=== PATIENT | female | born 1970 | race Caucasian/White ===

== ENCOUNTER → 2016-12-09 | Outpatient (CLI) | payer MEDICAID ==
--- NOTE | 2016-12-10 11:49 | MM ---
Reason for exam: screening (asymptomatic). Last mammogram was performed 10 months ago. History: Benign US biopsy breast VAD RT of the right breast, August 14, 2015. Physical Findings: A clinical breast exam by your physician is recommended on an annual basis and results should be correlated with mammographic findings. MG 3D Screening Mammo W/Cad Bilateral CC and MLO view(s) were taken. Prior study comparison: February 15, 2016, right breast MG diagnostic mammo RT w CAD. August 14, 2015, right breast MG diagnostic mammo RT wo CAD. There are scattered fibroglandular densities. Previous mammotome biopsy in the right breast. No significant changes when compared with prior studies. ASSESSMENT: Benign, BI-RAD 2 RECOMMENDATION: Routine screening mammogram of both breasts in 1 year.
== END | disposition home or self-care (01) ==
LOC: RADMAMWWP 16:24
PROVIDERS: ATTEND Family Medicine
DX: Z12.31 Encounter for screening mammogram for malignant neoplasm of breast (principal)
CPT/HCPCS: 77063; G0202

== ENCOUNTER → 2018-04-20 | Outpatient (CLI) | payer MEDICAID ==
--- NOTE | 2018-04-21 14:02 | MM ---
Reason for exam: screening (asymptomatic). Last mammogram was performed 1 year and 4 months ago. History: Benign US biopsy breast VAD RT of the right breast, August 14, 2015. Physical Findings: A clinical breast exam by your physician is recommended on an annual basis and results should be correlated with mammographic findings. MG Screening Mammo w CAD Bilateral CC and MLO view(s) were taken. Prior study comparison: December 09, 2016, bilateral MG 3d screening mammo w/cad. February 15, 2016, right breast MG diagnostic mammo RT w CAD. There are scattered fibroglandular densities. Previous mammotome biopsy in the right breast. Developing asymmetry middle depth upper aspect. ASSESSMENT: Incomplete: need additional imaging evaluation, BI-RAD 0 RECOMMENDATION: Special view mammogram of the right breast. If lesion persists on supplemental views, image directed ultrasound is recommended. [facility] will attempt to contact patient to return for supplemental views and ultrasound if indicated.
== END | disposition home or self-care (01) ==
LOC: RADMAMWWP 13:44
PROVIDERS: ATTEND Family Medicine
DX: Z12.31 Encounter for screening mammogram for malignant neoplasm of breast (principal)
CPT/HCPCS: 77067

== ENCOUNTER → 2018-04-29 | Outpatient (CLI) | payer MEDICAID ==
--- NOTE | 2018-05-03 07:56 | MM ---
Reason for exam: additional evaluation requested from abnormal screening. Last mammogram was performed less than 1 month ago. History: Benign US biopsy breast VAD RT of the right breast, August 14, 2015. Physical Findings: Nurse did not find any significant physical abnormalities on exam. MG 3D Work Up W/Cad LT CC and MLO view(s) were taken of the left breast. Technologist: Angeline Greene, RT (R)(M) Prior study comparison: April 20, 2018, bilateral MG screening mammo w CAD. December 09, 2016, bilateral MG 3d screening mammo w/cad. There are scattered fibroglandular densities. The questioned upper outer quadrant focal asymmetry appear to disperse. Precautionary 6 month follow up recommended. These results were verbally communicated with the patient and result sheet given to the patient on 04/29/18. ASSESSMENT: Probably benign, BI-RAD 3 RECOMMENDATION: Follow-up diagnostic mammogram of the left breast in 6 months.
== END | disposition home or self-care (01) ==
LOC: RADMAMWWP 14:11
PROVIDERS: ATTEND Family Medicine
DX: R92.8 Other abnormal and inconclusive findings on diagnostic imaging of breast (principal)
CPT/HCPCS: 77061; 77065

== ENCOUNTER → 2018-12-17 | Outpatient (CLI) | payer MEDICAID ==
--- NOTE | 2018-12-17 11:29 | MM ---
Reason for exam: follow-up at short interval from prior study. Last mammogram was performed 8 months ago. History: Patient is postmenopausal and had first child at age 29. Benign US biopsy breast VAD RT of the right breast, August 14, 2015. Physical Findings: Nurse did not find any significant physical abnormalities on exam. MG Diagnostic Mammo LT w CAD CC and MLO view(s) were taken of the left breast. Prior study comparison: April 29, 2018, left breast MG 3d work up w/cad LT. April 20, 2018, bilateral MG screening mammo w CAD. There are scattered fibroglandular densities. There is no discrete abnormality. No significant new findings when compared with previous films. These results were verbally communicated with the patient and result sheet given to the patient on 12/17/18. ASSESSMENT: Benign, BI-RAD 2 RECOMMENDATION: Return to routine screening mammogram schedule for both breasts. Back on schedule.
== END | disposition home or self-care (01) ==
LOC: RADMAMWWP 08:57
PROVIDERS: ATTEND Family Medicine
DX: N63.20 Unspecified lump in the left breast, unspecified quadrant (principal)
CPT/HCPCS: 77065

== ENCOUNTER → 2019-08-17 | Outpatient (CLI) | payer MEDICAID ==
--- NOTE | 2019-08-18 12:08 | MM ---
Reason for exam: screening (asymptomatic). Last mammogram was performed 8 months ago. History: Patient is postmenopausal and had first child at age 29. Benign US biopsy breast VAD RT of the right breast, August 14, 2015. Physical Findings: A clinical breast exam by your physician is recommended on an annual basis and results should be correlated with mammographic findings. MG Screening Mammo w CAD Bilateral CC and MLO view(s) were taken. Prior study comparison: December 17, 2018, left breast MG diagnostic mammo LT w CAD. April 20, 2018, bilateral MG screening mammo w CAD. December 09, 2016, bilateral MG 3d screening mammo w/cad. There are scattered fibroglandular densities. No significant changes when compared with prior studies. ASSESSMENT: Benign, BI-RAD 2 RECOMMENDATION: Routine screening mammogram of both breasts in 1 year.
== END | disposition home or self-care (01) ==
LOC: RADMAMWWP 15:16
PROVIDERS: ATTEND Family Medicine
DX: Z12.31 Encounter for screening mammogram for malignant neoplasm of breast (principal)
CPT/HCPCS: 77067

== ENCOUNTER → 2020-11-20 | Outpatient (CLI) | payer MEDICAID ==
--- NOTE | 2020-11-21 09:47 | MM ---
Reason for exam: screening (asymptomatic). Last mammogram was performed 1 year and 3 months ago. History: Patient is postmenopausal and had first child at age 29. Benign US biopsy breast VAD RT of the right breast, August 14, 2015. Physical Findings: A clinical breast exam by your physician is recommended on an annual basis and results should be correlated with mammographic findings. MG Screening Mammo w CAD Bilateral CC and MLO view(s) were taken. Prior study comparison: August 17, 2019, bilateral MG screening mammo w CAD. December 17, 2018, left breast MG diagnostic mammo LT w CAD. There are scattered fibroglandular densities. Previous mammotome biopsy in the right breast. There is chronic nodularity in the right breast. There is no discrete abnormality. ASSESSMENT: Benign, BI-RAD 2 RECOMMENDATION: Routine screening mammogram of both breasts in 1 year.
== END | disposition home or self-care (01) ==
LOC: RADMAMWWP 08:06
PROVIDERS: ATTEND Family Medicine
DX: Z12.31 Encounter for screening mammogram for malignant neoplasm of breast (principal)
CPT/HCPCS: 77067

== ENCOUNTER 2020-12-06 07:11 | Day surgery (SDC) | payer MEDICAID ==
[2020-12-05 10:13] VITALS: BMI 37.0
[~2020-12-06 07:11] MED LIST: LACTATED RINGERS 1,000 ML IV SCH
[2020-12-06 07:34] VITALS: TEMP 97.8
[2020-12-06] MEDS ORDERED: LIDOCAINE 1% (10MG/ML) FOR IV START INTRADERMA ONE (07:38)
[2020-12-06] MEDS ORDERED: PROPOFOL 10 MG/ML 20 ML VIAL IV ONE (08:04)
--- NOTE | 2020-12-06 08:28 | P.PCN ---
Date of Procedure: 12/06/20 Description of Procedure: BRIEF HISTORY: Patient is a 50-year-old female presented for outpatient colonoscopy for evaluation of positive Cologard in the outpatient setting. No prior colonoscopy reported. No change in bowel habits. No family history of colon cancer aborted. PROCEDURE PERFORMED: Colonoscopy with polypectomy. PREOPERATIVE DIAGNOSIS: Positive Cologard, no prior colonoscopy. ESTIMATED BLOOD LOSS: Minimal. IV sedation per Anesthesia. PROCEDURE: After informed consent was obtained, the patient, was brought into the endoscopy unit. IV sedation was administered by Anesthesia under continuous monitoring. Digital rectal examination was normal. Initially the Olympus CF-190 flexible video colonoscope was then inserted in the rectum, gradually advanced into the cecum without any difficulty. Careful examination was performed as the scope was gradually being withdrawn. Ileocecal valve and the appendiceal orifice were visualized and appeared normal. Prep was excellent. Mucosa of the cecum, ascending colon, transverse colon, descending colon, sigmoid colon, and rectum appeared normal, except for a few scattered diverticula noted in the sigmoid colon. A sessile 4 mm sigmoid colon polyp was removed with cold snare polypectomy . Retroflexion was performed in the rectum and no lesions were seen, low-grade internal hemorrhoids. The patient tolerated the procedure well. IMPRESSION: Sigmoid colon polyp removed with cold snare polypectomy. Mild sigmoid diverticulosis. Internal hemorrhoids. RECOMMENDATIONS: Findings of this examination were discussed with the patient and her family. Okay to resume diet. Okay to resume medications. Await pathology from po lypectomy. Recommend repeat colonoscopy in 7 years for colon polyp pending pathology from polypectomy.
[2020-12-06 09:02] VITALS: BP 122/74; PULSE 77; RESP 16
== END 2020-12-06 09:03 | disposition home or self-care (01) ==
LOC: ORWHC2ENDO 07:11
PROVIDERS: ATTEND Internal Medicine
DX: K63.5 Polyp of colon (principal); K57.30 Diverticulosis of large intestine without perforation or abscess without bleeding; K64.8 Other hemorrhoids; E78.5 Hyperlipidemia, unspecified; F17.200 Nicotine dependence, unspecified, uncomplicated; F98.8 Other specified behavioral and emotional disorders with onset usually occurring in childhood and adolescence; Z88.0 Allergy status to penicillin; Z79.899 Other long term (current) drug therapy; Z98.890 Other specified postprocedural states
CPT/HCPCS: 88305; 45385; J2704

== ENCOUNTER → 2021-12-16 | Outpatient (CLI) | payer MEDICAID ==
--- NOTE | 2021-12-18 13:15 | MM ---
Reason for exam: screening (asymptomatic). Last mammogram was performed 1 year and 1 month ago. History: Patient is postmenopausal and had first child at age 29. Benign US biopsy breast VAD RT of the right breast, August 14, 2015. Physical Findings: A clinical breast exam by your physician is recommended on an annual basis and results should be correlated with mammographic findings. MG Screening Mammo w CAD Bilateral CC and MLO view(s) were taken. Prior study comparison: November 20, 2020, bilateral MG screening mammo w CAD. August 17, 2019, bilateral MG screening mammo w CAD. There are scattered fibroglandular densities. Previous mammotome biopsy in the right breast. There is chronic nodularity in the right breast. No significant changes when compared with prior studies. ASSESSMENT: Benign, BI-RAD 2 RECOMMENDATION: Routine screening mammogram of both breasts in 1 year.
== END | disposition home or self-care (01) ==
LOC: RADMAMWWP 12:42
PROVIDERS: ATTEND Family Medicine
DX: Z12.31 Encounter for screening mammogram for malignant neoplasm of breast (principal); Z78.0 Asymptomatic menopausal state
CPT/HCPCS: 77067

== ENCOUNTER → 2023-04-06 | Outpatient (CLI) | payer OTHER ==
--- NOTE | 2023-04-06 17:35 | XR ---
EXAMINATION TYPE: XR finger LT DATE OF EXAM: 04/06/2023 5:20 PM INDICATION: Patient age:Female; 52 years old; Reason for study: S61.201A; [facility]. COMPARISON: None TECHNIQUE: Frontal, lateral and oblique views of the no finger were obtained. FINDINGS: Soft tissue swelling of the third digit. No evidence of radiopaque foreign body. No evidenc e of fracture or dislocation. IMPRESSION: 1. No acute osseous pathology. 2. No evidence radiopaque foreign body. 3. Soft tissue swelling.
== END | disposition home or self-care (01) ==
LOC: RADXRMAIN 17:04
PROVIDERS: ATTEND Emergency Medicine
DX: S61.201A Unspecified open wound of left index finger without damage to nail, initial encounter (principal); M79.89 Other specified soft tissue disorders

== ENCOUNTER → 2023-04-10 | Outpatient (CLI) | payer OTHER ==
--- NOTE | 2023-04-10 17:39 | CA ---
Transthoracic Echo Report Name: Bay Chu Age: 52 Gender: F : 1970 Exam Date: 04/10/2023 12:51 Exam Location: [facility] Ht (in): 64 Wt (lb): 234 Ordering Physician: Eleuterio Silverman DO Attending/Referring Phys: Karina Mckeon PAC [employer] Anupama Pereira RDCS Procedure CPT: Indications: R0.11 Cardiac Hx: Technical Quality: Fair Contrast 1: Total Dose (mL): Contrast 2: Total Dose (mL): MEASUREMENTS (Male / Female) Normal Values 2D ECHO LV Diastolic Diameter PLAX 4.2 cm 4.2 - 5.9 / 3.9 - 5.3 cm LV Systolic Diameter PLAX 2.6 cm IVS Diastolic Thickness 1.3 cm 0.6 - 1.0 / 0.6 - 0.9 cm LVPW Diastolic Thickness 1.2 cm 0.6 - 1.0 / 0.6 - 0.9 cm LV Relative Wall Thickness 0.6 RV Internal Dim ED PLAX 2.7 cm LA Systolic Diameter LX 3.0 cm 3.0 - 4.0 / 2.7 - 3.8 cm LV Diastolic Volume MOD BP 46.0 cm??? 67 - 155 / 56 - 104 cm??? LV Systolic Volume MOD BP 22.2 cm??? 22 - 58 / 19 - 49 cm??? LV Ejection Fraction MOD BP 51.7 % >= 55 % LV Cardiac Index MOD BP 965.5 cm???/min???m??? LV Diastolic Volume MOD 4C 45.7 cm??? LV Systolic Volume MOD 4C 16.9 cm??? LV Ejection Fraction MOD 4C 63.1 % LV Cardiac Index MOD 4C 1170.9 cm???/min???m??? LV Diastolic Length 4C 7.2 cm LV Systolic Length 4C 6.4 cm LV Diastolic Volume MOD 2C 43.0 cm??? LV Systolic Volume MOD 2C 28.8 cm??? LV Ejection Fraction MOD 2C 32.9 % LV Cardiac Index MOD 2C 574.8 cm???/min???m??? LV Diastolic Length 2C 6.3 cm LV Systolic Length 2C 6.8 cm LA Volume 38.4 cm??? 18 - 58 / 22 - 52 cm??? M-MODE Aortic Root Diameter MM 3.5 cm MV E Point Septal Separation 0.3 cm AV Cusp Separation MM 1.9 cm DOPPLER AV Peak Velocity 152.3 cm/s AV Peak Gradient 9.3 mmHg MV Area PHT 2.4 cm??? Mitral E Point Velocity 65.8 cm/s Mitral A Point Velocity 71.1 cm/s Mitral E to A Ratio 0.9 MV Deceleration Time 316.7 ms TR Peak Velocity 194.1 cm/s TR Peak Gradient 15.1 mmHg Right Ventricular Systolic Press 20.1 mmHg FINDINGS Left Ventricle Left ventricular ejection fraction is estimated at 55-60 %. Left ventricular cavity size normal. Normal left ventricular wall motion. Mildly increased left ventricular wall thickness. Right Ventricle Normal right ventricular size and function. Right ventricular systolic pressure within normal limits. Right Atrium Normal right atrial size. Left Atrium Normal left atrial size. Mitral Valve Structurally normal mitral valve. No mitral stenosis, regurgitation or prolapse. Aortic Valve Trileaflet aortic valve. No aortic valve stenosis or regurgitation. Tricuspid Valve Structurally normal tricuspid valve. Trace to mild tricuspid regurgitation. Pulmonic Valve Structurally normal pulmonic valve. No pulmonic regurgitation. Pericardium Normal pericardium. No pericardial effusion. Aorta Normal size aortic root and proximal ascending aorta. CONCLUSIONS 1. Normal left ventricular size and function 2. Trace to mild tricuspid regurgitation Previewed by: Dr. Edmundo Manning MD (Electronically Signed) Final Date: 10 April 2023 17:38
== END | disposition home or self-care (01) ==
LOC: RADECHMAIN 12:46
PROVIDERS: ATTEND Family Medicine
DX: I07.1 Rheumatic tricuspid insufficiency (principal); R01.1 Cardiac murmur, unspecified
CPT/HCPCS: 93306

== ENCOUNTER → 2023-09-18 | Outpatient (CLI) | payer BC ==
--- NOTE | 2023-09-21 07:46 | MM ---
Reason for Exam: Screening (asymptomatic). Last mammogram was performed 1 year(s) and 9 month(s) ago. Patient History: Menarche at age 13. First Full-Term at age 29. Late child-bearing (after 30). Postmenopausal. 08/14/2015, Benign Core Biopsy on the right side. Risk Values: Delmy 5 year model risk: 1.7%. NCI Lifetime model risk: 12.2%. Prior Study Comparison: 08/17/2019 Bilateral Screening Mammogram, [facility]. 11/20/2020 Bilateral Screening Mammogram, [facility]. 12/16/2021 Bilateral Screening Mammogram, [facility]. Tissue Density: The breast tissue is almost entirely fat. Findings: Analyzed By CAD. Right breast biopsy clip. There is no suspicious group of microcalcifications or new suspicious mass. Overall Assessment: Benign, BI-RAD 2 Management: Screening Mammogram of both breasts in [address] [facility] will attempt to contact patient to return for supplemental views and ultrasound if indicated. Patient should continue monthly self-breast exams. A clinical breast exam by your physician is recommended on an annual basis. This exam should not preclude additional follow-up of suspicious palpable abnormalities. Note on Delmy scores and lifetime risk: 1. A Delmy score greater than 3% is considered moderate risk. If this is the case, consider specialist referral to assess eligibility for a risk reducing agent. 2. If overall lifetime risk for the development of breast cancer is 20% or higher, the patient may qualify for future screening with alternating mammogram and breast MRI. Electronically signed and approved by: Robi Mike DO
== END | disposition home or self-care (01) ==
LOC: RADMAMWWP 10:43
PROVIDERS: ATTEND Family Medicine
DX: Z12.31 Encounter for screening mammogram for malignant neoplasm of breast (principal); Z78.0 Asymptomatic menopausal state
CPT/HCPCS: 77067